=== PATIENT | male | born 1965 | race Caucasian/White ===

== ENCOUNTER → 2018-10-02 | Outpatient (CLI) | payer OTHER | LOC: CAT 14:33 | DX: Z13.6 Encounter for screening for cardiovascular disorders (principal); E78.00 Pure hypercholesterolemia, unspecified ==

== ENCOUNTER → 2019-08-14 | Outpatient (CLI) | payer OTHER | LOC: CAT 13:13 | DX: R31.9 Hematuria, unspecified (principal) ==